=== PATIENT | male | born 1965 | race Caucasian/White ===

== ENCOUNTER 2017-08-17 12:59 | Emergency (ER) | payer MEDICARE, OTHER ==
[~2017-08-17] VITALS: Ht 188 cm; Wt 102.1 kg
[2017-08-17] MEDS ORDERED: GLIPIZIDE 5 MG (13:27)
[2017-08-17] MEDS ORDERED: ROSUVASTATIN CALCIUM 10 MG TAB (13:27)
[2017-08-17] MEDS ORDERED: TRAMADOL 50MG TABLETS (13:27)
[2017-08-17] MEDS ORDERED: METFORMIN HCL 1000 MG (13:27)
[2017-08-17] MEDS ORDERED: LISINOPRIL 10 MG TABS (13:27)
--- NOTE | 2017-08-17 13:49 | NUR ---
PT WAS EVALUATED BY DR ALMANZAR. PT WAS D/C TO HOME. D/C INSTRUCTIONS GIVEN TO THE PT.
[2017-08-17 13:51] VITALS: BP 141/79
== END 2017-08-17 13:52 | disposition home or self-care (01) ==
LOC: ER 12:59
DX: Z76.0 Encounter for issue of repeat prescription (principal); G89.29 Other chronic pain; F17.200 Nicotine dependence, unspecified, uncomplicated; E11.9 Type 2 diabetes mellitus without complications
CPT/HCPCS: 99283; A4663

== ENCOUNTER 2017-09-09 10:50 | Emergency (ER) | payer MEDICARE, OTHER ==
[~2017-09-09] VITALS: Ht 188 cm; Wt 99.8 kg
[~2017-09-09 10:50] MED LIST: GLIPIZIDE 5 MG; LISINOPRIL 10 MG TABS; METFORMIN HCL 1000 MG; ROSUVASTATIN CALCIUM 10 MG TAB; TRAMADOL 50MG TABLETS
--- NOTE | 2017-09-09 11:36 | NUR ---
PT WAS EVALUATED BY DR ROBLERO. PT ELOPED AFTER DR ROBLERO TALKED TO HIM. DR ROBLERO NOTIFIED.
== END 2017-09-09 11:38 | disposition left against medical advice (07) ==
LOC: ER 10:50
DX: G89.29 Other chronic pain (principal); E11.9 Type 2 diabetes mellitus without complications; F17.200 Nicotine dependence, unspecified, uncomplicated
CPT/HCPCS: A4663

== ENCOUNTER 2017-09-14 12:17 | Emergency (ER) | payer OTHER ==
[~2017-09-14] VITALS: Ht 188 cm; Wt 99.8 kg
[2017-09-14] MEDS ORDERED: ALPRAZOLAM 0.25 MG TABLET PO ONE (12:47)
[2017-09-14] MEDS ORDERED: IV NS 1000 ML 1,000 ML IV ONE (13:00)
[2017-09-14 13:05] LABS: BASOPHILS % (AUTO) 0.5 % (0.0-2.0); EOSINOPHILS # (AUTO) 0.1 K/uL (0.0-0.7); EOSINOPHILS % (AUTO) 0.5 % (0.0-7.0); HEMATOCRIT 45.9 % (36.7-47.1); HEMOGLOBIN 15.6 g/dL (12.5-16.3); LYMPHOCYTES # (AUTO) 1.7 K/uL (20.0-40.0); LYMPHOCYTES % (AUTO) 17.2 % (20.5-51.5); MEAN CORPUSCULAR HEMOGLOBIN 30.5 uug (23.8-33.4); MEAN CORPUSCULAR HGB CONC 34 g/dL (32.5-36.3); MEAN CORPUSCULAR VOLUME 89.6 fL (73.0-96.2); MONOCYTES # (AUTO) 0.6 K/uL (2.0-10.0); MONOCYTES % (AUTO) 5.5 % (0.0-11.0); NEUTROPHILS # (AUTO) 7.7 K/uL (1.8-8.9); NEUTROPHILS % (AUTO) 76.3 % (38.5-71.5); PLATELET COUNT (AUTO) 275 K/uL (152-348); RED BLOOD CELL COUNT(AUTO) 5.13 MIL/uL (4.06-5.63); WHITE BLOOD COUNT (AUTO) 10.1 K/uL (3.6-10.2)
--- NOTE | 2017-09-14 13:05 | NUR ---
PT IS IN BED #2B. DR SANTOS EVALUATED THE PT.
[2017-09-14] MEDS ORDERED: HYDROCODONE/APAP 7.5-325MG TABLET PO PRN (13:15)
[2017-09-14 13:17] LABS: CREATININE 1.1 mg/dL (0.6-1.3); POTASSIUM 3.7 mmol/L (3.5-5.1)
[2017-09-14] MEDS ORDERED: ALPRAZOLAM 0.5 MG TABLET ONE (13:17)
[2017-09-14 13:23] LABS: BILIRUBIN,TOTAL 0.2 mg/dL (0.2-1.0); TOTAL PROTEIN, SERUM 7.6 g/dL (6.4-8.2)
[2017-09-14] MEDS ORDERED: HYDROMORPHONE 1 MG/1 ML DISP.SYRIN IV ONE (14:30)
[2017-09-14] MEDS ORDERED: HYDROCODONE/APAP 7.5-325MG TABLET ONE (14:35)
--- NOTE | 2017-09-14 14:51 | NUR ---
IV removed. Catheter intact and site benign. Pressure and 4x4 gauze applied to site. No bleeding noted.
[2017-09-14 14:52] VITALS: BP 148/94
[2017-09-14] MEDS ORDERED: HYDROMORPHONE 2 MG/1 ML DISP.SYRIN ONE (14:53)
--- NOTE | 2017-09-14 14:53 | NUR ---
Patient discharged to home in stable conditon. Written and verbal after care instructions given. Patient verbalizes understanding of instructions. Stressed follow up with pmd.
== END 2017-09-14 14:57 | disposition home or self-care (01) ==
LOC: ER 12:17
DX: F11.23 Opioid dependence with withdrawal (principal); E11.9 Type 2 diabetes mellitus without complications; F17.200 Nicotine dependence, unspecified, uncomplicated
CPT/HCPCS: 70030-TC; 85025; 93005; A4663; J1170; J7030

== ENCOUNTER 2017-10-30 14:45 | Emergency (ER) | payer OTHER ==
[~2017-10-30] VITALS: Ht 188 cm; Wt 99.8 kg
[2017-10-30] MEDS: HYDROMORPHONE 1 MG/1 ML DISP.SYRIN IM ONE (15:59)
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
--- NOTE | 2017-10-30 16:00 | NUR ---
Patient discharged to home in stable conditon. Written and verbal after care instructions given. Patient verbalizes understanding of instructions. DILAUDID PRECAUTIONS GIVEN.
[2017-10-30] MEDS ORDERED: HYDROMORPHONE 2 MG/1 ML DISP.SYRIN ONE (16:11)
== END 2017-10-30 16:02 | disposition home or self-care (01) ==
LOC: ER 14:46
DX: Z76.0 Encounter for issue of repeat prescription (principal); G89.29 Other chronic pain; E11.9 Type 2 diabetes mellitus without complications; F17.200 Nicotine dependence, unspecified, uncomplicated; Z79.84 Long term (current) use of oral hypoglycemic drugs
CPT/HCPCS: A4663; J1170

== ENCOUNTER 2017-11-02 16:25 | Emergency (ER) | payer OTHER ==
[~2017-11-02] VITALS: Ht 188 cm; Wt 99.8 kg
== END 2017-11-02 17:00 | disposition home or self-care (01) ==
LOC: ER 16:27
DX: G89.29 Other chronic pain (principal); Z76.0 Encounter for issue of repeat prescription; E11.9 Type 2 diabetes mellitus without complications; Z79.84 Long term (current) use of oral hypoglycemic drugs; F17.200 Nicotine dependence, unspecified, uncomplicated
CPT/HCPCS: 99283; A4663

== ENCOUNTER 2017-12-13 19:01 | Emergency (ER) | payer OTHER ==
[~2017-12-13] VITALS: Ht 188 cm; Wt 99.8 kg
--- NOTE | 2017-12-13 19:27 | NUR ---
PT IN BED. PT ARRIVED AT ED WITH HOPES OF GETTING A TRAMADOL PRESCRIPTION. PT STATES THAT HE ROUTINELY TAKES THIS MED TO HELP WITH CHRONIC LT SHOULDER PAIN. PT STATES THAT HE RAN OUT OF MEDS BEFORE HE COULD SEE HIS PRIMARY MD.
--- NOTE | 2017-12-13 19:53 | NUR ---
Patient discharged to home in stable conditon. Written and verbal after care instructions given. Patient verbalizes understanding of instructions. Patient able to ambulate unassisted with a steady gait. Patient left with all personal belongings.
[2017-12-13 19:58] VITALS: BP 148/88
== END 2017-12-13 19:53 | disposition home or self-care (01) ==
LOC: ER 19:01
DX: G89.29 Other chronic pain (principal); M25.512 Pain in left shoulder; M25.531 Pain in right wrist; M25.562 Pain in left knee; E11.9 Type 2 diabetes mellitus without complications; F17.210 Nicotine dependence, cigarettes, uncomplicated; Z79.84 Long term (current) use of oral hypoglycemic drugs; Z79.891 Long term (current) use of opiate analgesic; Z79.899 Other long term (current) drug therapy
CPT/HCPCS: A4663

== ENCOUNTER 2018-02-07 18:43 | Emergency (ER) | payer OTHER ==
[~2018-02-07] VITALS: Ht 188 cm; Wt 95.3 kg
--- NOTE | 2018-02-07 19:07 | NUR ---
REPORT GIVE TO MERLE SOLORZANO.
--- NOTE | 2018-02-07 19:12 | NUR ---
REPORT TAKEN FROM ALEJANDRO. ASSUMING PT CARE AT THIS TIME.
[2018-02-07] MEDS ORDERED: TRAMADOL HCL 50 MG TABLET PO ONE (20:15)
[2018-02-07] MEDS ORDERED: TRAMADOL HCL 50 MG TABLET ONE (20:28)
--- NOTE | 2018-02-07 20:32 | NUR ---
Patient discharged to home in stable conditon. Written and verbal after care instructions given. Patient verbalizes understanding of instructions. Patient reported reduced pain prior to discharge. Patient able to ambulate unassisted with steady gait. Patient left with all personal belongings.
[2018-02-07 20:34] VITALS: BP 152/96
== END 2018-02-07 20:30 | disposition home or self-care (01) ==
LOC: ER 18:45
DX: G89.29 Other chronic pain (principal); F17.200 Nicotine dependence, unspecified, uncomplicated; Z76.0 Encounter for issue of repeat prescription
CPT/HCPCS: A4663

== ENCOUNTER 2018-02-09 12:06 | Emergency (ER) | payer OTHER ==
[~2018-02-09] VITALS: Ht 188 cm; Wt 95.3 kg
--- NOTE | 2018-02-09 13:44 | NUR ---
Patient discharged to home in stable conditon. Written and verbal after care instructions given. Patient verbalizes understanding of instructions.
[2018-02-09] MEDS ORDERED: TRAMADOL HCL 50 MG TABLET PO ONE (13:45)
[2018-02-09] MEDS ORDERED: TRAMADOL HCL 50 MG TABLET ONE (13:46)
== END 2018-02-09 13:45 | disposition home or self-care (01) ==
LOC: ER 12:06
DX: G89.29 Other chronic pain (principal); M54.9 Dorsalgia, unspecified; F17.200 Nicotine dependence, unspecified, uncomplicated; E11.9 Type 2 diabetes mellitus without complications; Z79.84 Long term (current) use of oral hypoglycemic drugs
CPT/HCPCS: A4663

== ENCOUNTER 2018-02-11 00:59 | Emergency (ER) | payer OTHER ==
--- NOTE | 2018-02-11 01:25 | NUR ---
PATIENT LEFT WITHOUT BEING TRIAGED OR SEEN BY ERMD
== END 2018-02-11 01:27 | disposition left against medical advice (07) ==
LOC: ER 00:59
DX: Z53.21 Procedure and treatment not carried out due to patient leaving prior to being seen by health care provider (principal)

== ENCOUNTER 2018-02-11 08:22 | Emergency (ER) | payer OTHER ==
[~2018-02-11] VITALS: Ht 188 cm; Wt 95.3 kg
[2018-02-11] MEDS ORDERED: ONDANSETRON ODT 4 MG TAB.RAPDIS SL ONE (08:37)
[2018-02-11] MEDS ORDERED: MORPHINE SULFATE 4 MG/1 ML DISP.SYRIN ONE (08:42)
[2018-02-11] MEDS ORDERED: ONDANSETRON ODT 4 MG TAB.RAPDIS ONE (08:42)
[2018-02-11] MEDS ORDERED: MORPHINE SULFATE 4 MG/1 ML DISP.SYRIN IM ONE (08:45)
--- NOTE | 2018-02-11 09:05 | NUR ---
Patient discharged to home in stable conditon. Written and verbal after care instructions given. Patient verbalizes understanding of instructions.pt walks in steady gait
[2018-02-11 09:07] VITALS: BP 131/81
== END 2018-02-11 09:09 | disposition home or self-care (01) ==
LOC: ER 08:22
DX: G89.29 Other chronic pain (principal); M25.512 Pain in left shoulder; M25.562 Pain in left knee; M25.531 Pain in right wrist; E11.9 Type 2 diabetes mellitus without complications; Z79.84 Long term (current) use of oral hypoglycemic drugs; F17.200 Nicotine dependence, unspecified, uncomplicated
CPT/HCPCS: 96372; 99283; A4663; J2270; Q0162

== ENCOUNTER 2018-02-12 13:51 | Emergency (ER) | payer OTHER ==
[~2018-02-12] VITALS: Ht 188 cm; Wt 95.3 kg
--- NOTE | 2018-02-12 14:05 | NUR ---
MSE DONE BY DR GRANADOS IN ROOM 04B. PATIENT MULTIPLE VISIT TO ER FOR CHRONIC PAIN.
--- NOTE | 2018-02-12 14:23 | NUR ---
Patient discharged to home in stable conditon. Written and verbal after care instructions given. Patient verbalizes understanding of instructions.
[2018-02-12 14:27] VITALS: BP 126/71
== END 2018-02-12 14:28 | disposition home or self-care (01) ==
LOC: ER 13:52
DX: G89.29 Other chronic pain (principal); M54.5 Low back pain; E11.9 Type 2 diabetes mellitus without complications; Z79.84 Long term (current) use of oral hypoglycemic drugs; F17.200 Nicotine dependence, unspecified, uncomplicated
CPT/HCPCS: A4663

== ENCOUNTER 2018-02-12 19:13 | Emergency (ER) | payer OTHER ==
[~2018-02-12] VITALS: Ht 188 cm; Wt 95.3 kg
--- NOTE | 2018-02-12 21:30 | NUR ---
DR JOSHUA MENA MD AT BEDSIDE FOR MSE.
[2018-02-12] MEDS ORDERED: TRAMADOL HCL 50 MG TABLET ONE (21:44)
[2018-02-12] MEDS ORDERED: TRAMADOL HCL 50 MG TABLET PO ONE (21:45)
--- NOTE | 2018-02-12 21:46 | NUR ---
Patient discharged to home in stable conditon. Written and verbal after care instructions given. Patient verbalizes understanding of instructions. Pt ambulated from ER w/ steady gait. Pt took all personal belongings.
[2018-02-12 21:49] VITALS: BP 156/84
== END 2018-02-12 21:50 | disposition home or self-care (01) ==
LOC: ER 19:16
DX: G89.29 Other chronic pain (principal); Z76.0 Encounter for issue of repeat prescription; F17.200 Nicotine dependence, unspecified, uncomplicated; E11.9 Type 2 diabetes mellitus without complications; Z79.84 Long term (current) use of oral hypoglycemic drugs
CPT/HCPCS: A4663

== ENCOUNTER 2018-02-16 18:09 | Emergency (ER) | payer OTHER ==
[~2018-02-16] VITALS: Ht 188 cm; Wt 95.3 kg
--- NOTE | 2018-02-16 19:18 | NUR ---
RECEIVED REPORT FROM RASHAD TRACEY
--- NOTE | 2018-02-16 19:42 | NUR ---
VISUAL DESIGN LEAD AT BEDSIDE PERFORMING BLOOD DRAW
[2018-02-16] MEDS ORDERED: CARISOPRODOL 350 MG TABLET ONE ×2 (19:44→21:16)
[2018-02-16] MEDS ORDERED: CARISOPRODOL 350 MG TABLET PO ONE ×2 (19:45→21:15)
--- NOTE | 2018-02-16 19:55 | NUR ---
PT IN BED. PT IS A&OX4. PT HAS REGULAR/UNLABORED BREATH SOUNDS. PT IS CALM AND COOPERATIVE. PT IS QUIETLY WATCHING TV. NO SIGNS/SYMPTOMS OF DISTRESS WITNESSED OR EXPRESSED BY PT.
[2018-02-16 20:03] LABS: CREATININE 1.1 mg/dL (0.6-1.3); MAGNESIUM 1.9 mg/dL (1.8-2.4); POTASSIUM 3.7 mmol/L (3.5-5.1)
[2018-02-16 20:14] LABS: BASOPHILS # (AUTO) 0.1 K/uL (0.0-8.0); BASOPHILS % (AUTO) 0.7 % (0.0-2.0); EOSINOPHILS # (AUTO) 0.1 K/uL (0.0-0.7); EOSINOPHILS % (AUTO) 1.7 % (0.0-7.0); HEMOGLOBIN 14.6 g/dL (12.5-16.3); LYMPHOCYTES # (AUTO) 1.8 K/uL (20.0-40.0); LYMPHOCYTES % (AUTO) 23.3 % (20.5-51.5); MEAN CORPUSCULAR HEMOGLOBIN 30.6 uug (23.8-33.4); MEAN CORPUSCULAR HGB CONC 34 g/dL (32.5-36.3); MEAN CORPUSCULAR VOLUME 89.9 fL (73.0-96.2); MONOCYTES # (AUTO) 0.6 K/uL (2.0-10.0); MONOCYTES % (AUTO) 7.2 % (0.0-11.0); NEUTROPHILS # (AUTO) 5.2 K/uL (1.8-8.9); NEUTROPHILS % (AUTO) 67.1 % (38.5-71.5); PLATELET COUNT (AUTO) 237 K/uL (152-348); RED BLOOD CELL COUNT(AUTO) 4.78 MIL/uL (4.06-5.63); WHITE BLOOD COUNT (AUTO) 7.7 K/uL (3.6-10.2)
[2018-02-16] MEDS ORDERED: OXYCODONE/APAP 5-325 MG TABLET PO ONE (21:15)
[2018-02-16] MEDS ORDERED: OXYCODONE/APAP 5-325 MG TABLET ONE (21:16)
--- NOTE | 2018-02-16 21:18 | NUR ---
Patient discharged to home in stable conditon. Written and verbal after care instructions given. Patient verbalizes understanding of instructions. Ambulated from ER with stable gait. Educated not to drive or operate heavy machinery due to recent narcotic intake. Patient states he will walk home and lives nearby. All belongings with patient.
[2018-02-16 21:19] VITALS: BP 131/80
== END 2018-02-16 21:20 | disposition home or self-care (01) ==
LOC: ER 18:12
DX: G89.29 Other chronic pain (principal); M62.838 Other muscle spasm; E11.9 Type 2 diabetes mellitus without complications; F17.210 Nicotine dependence, cigarettes, uncomplicated; Z79.84 Long term (current) use of oral hypoglycemic drugs; Z79.891 Long term (current) use of opiate analgesic; Z79.899 Other long term (current) drug therapy
CPT/HCPCS: 36415; 83735; 85025; A4663

== ENCOUNTER 2018-03-04 20:38 | Emergency (ER) | payer OTHER ==
[~2018-03-04] VITALS: Ht 185.4 cm; Wt 99.8 kg
--- NOTE | 2018-03-04 21:02 | NUR ---
DR JENELLE MENA MD AT BEDSIDE FOR MSE.
[2018-03-04] MEDS ORDERED: HYDROMORPHONE 2 MG/1 ML DISP.SYRIN ONE (21:11)
[2018-03-04] MEDS ORDERED: ONDANSETRON 4 MG/2 ML VIAL ONE (21:11)
[2018-03-04] MEDS: ONDANSETRON 4 MG/2 ML VIAL IM ONE (21:16)
[2018-03-04] MEDS: HYDROMORPHONE 1 MG/1 ML DISP.SYRIN IM ONE (21:16)
--- NOTE | 2018-03-04 21:18 | NUR ---
Patient discharged to home in stable conditon. Written and verbal after care instructions given. Patient verbalizes understanding of instructions. Pt ambulated from ER w/ steady gait. No acute distress noted. Pt took all personal belongings.
[2018-03-04 21:21] VITALS: BP 137/72
== END 2018-03-04 21:42 | disposition home or self-care (01) ==
LOC: ER 20:40
DX: M79.675 Pain in left toe(s) (principal); E11.9 Type 2 diabetes mellitus without complications; F17.200 Nicotine dependence, unspecified, uncomplicated; Z79.899 Other long term (current) drug therapy
CPT/HCPCS: A4663; J1170; J2405

== ENCOUNTER 2018-03-07 23:23 | Emergency (ER) | payer OTHER ==
[~2018-03-07] VITALS: Ht 185.4 cm; Wt 93.0 kg
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
[2018-03-07] MEDS ORDERED: HYDROCODONE/APAP 10-325 MG TABLET PO ONE (23:58)
[2018-03-08] MEDS ORDERED: HYDROCODONE/APAP 10-325 MG TABLET ONE (00:16)
--- NOTE | 2018-03-08 01:20 | NUR ---
PATIENT IN ROOM WITH NO DISTRESS NOTED
[2018-03-08] MEDS ORDERED: MORPHINE SULFATE 4 MG/1 ML DISP.SYRIN ONE (01:39)
[2018-03-08] MEDS ORDERED: MORPHINE SULFATE 2 MG/1 ML DISP.SYRIN IM ONE (01:45)
--- NOTE | 2018-03-08 01:51 | NUR ---
Patient discharged to home in stable conditon. Written and verbal after care instructions given. Patient verbalizes understanding of instructions. WALKED OUT OF ER NO DISTRESS NOTED
[2018-03-08 01:52] VITALS: BP 145/85
== END 2018-03-08 01:55 | disposition home or self-care (01) ==
LOC: ER 23:25
DX: S40.011A Contusion of right shoulder, initial encounter (principal); E11.9 Type 2 diabetes mellitus without complications; F17.210 Nicotine dependence, cigarettes, uncomplicated; Z79.84 Long term (current) use of oral hypoglycemic drugs; Z79.891 Long term (current) use of opiate analgesic; Z79.899 Other long term (current) drug therapy; X58.XXXA Exposure to other specified factors, initial encounter; Y93.89 Activity, other specified; Y92.89 Other specified places as the place of occurrence of the external cause; Y99.8 Other external cause status
CPT/HCPCS: 71045; 73020; 73060; 96372; 99284; A4663; J2270

== ENCOUNTER 2018-03-08 17:16 | Emergency (ER) | payer OTHER ==
[~2018-03-08] VITALS: Ht 185.4 cm; Wt 93.0 kg
--- NOTE | 2018-03-08 18:36 | NUR ---
Patient is resting comfortably in bed with eyes closed. Patient not in any distress noted.
--- NOTE | 2018-03-08 19:24 | NUR ---
REPORT TAKEN FROM KEN ALLEN. ASSUMING PT CARE AT THIS TIME. PT RESTING IN BED W/ EYES CLOSED. NO DISTRESS NOTED.
[2018-03-08] MEDS ORDERED: HYDROCODONE/APAP 5-325MG TABLET PO ONE (19:30)
[2018-03-08] MEDS ORDERED: HYDROCODONE/APAP 5-325MG TABLET ONE (19:36)
--- NOTE | 2018-03-08 19:37 | NUR ---
Patient discharged to home in stable conditon. Written and verbal after care instructions given. Patient verbalizes understanding of instructions. Pt ambualated from ER w/ steady gait. Pt took all personal belongings. No distress noted.
[2018-03-08 19:40] VITALS: BP 144/84
== END 2018-03-08 19:41 | disposition home or self-care (01) ==
LOC: ER 17:20
DX: M25.511 Pain in right shoulder (principal); M25.551 Pain in right hip; F17.210 Nicotine dependence, cigarettes, uncomplicated; E11.9 Type 2 diabetes mellitus without complications; Z79.84 Long term (current) use of oral hypoglycemic drugs; Z79.891 Long term (current) use of opiate analgesic; Z79.899 Other long term (current) drug therapy
CPT/HCPCS: 72170; 99283; A4663

== ENCOUNTER 2018-03-09 15:33 | Emergency (ER) | payer OTHER ==
[~2018-03-09] VITALS: Ht 188 cm; Wt 95.3 kg
--- NOTE | 2018-03-09 15:57 | NUR ---
at the bedside for MSE.
[2018-03-09] MEDS ORDERED: HYDROMORPHONE 1 MG/1 ML DISP.SYRIN IM ONE (16:00)
[2018-03-09] MEDS ORDERED: ONDANSETRON 4 MG/2 ML VIAL IM ONE (16:00)
[2018-03-09] MEDS ORDERED: ONDANSETRON 4 MG/2 ML VIAL ONE (16:03)
[2018-03-09] MEDS ORDERED: HYDROMORPHONE 2 MG/1 ML DISP.SYRIN ONE (16:03)
--- NOTE | 2018-03-09 16:05 | NUR ---
Patient discharged to home in stable conditon. Written and verbal after care instructions given. Patient verbalizes understanding of instructions. Pt left ER w/ steady gait.
[2018-03-09 16:07] VITALS: BP 133/71
== END 2018-03-09 16:10 | disposition home or self-care (01) ==
LOC: ER 15:35
DX: G89.29 Other chronic pain (principal); M25.511 Pain in right shoulder; I10 Essential (primary) hypertension; E11.9 Type 2 diabetes mellitus without complications; F17.210 Nicotine dependence, cigarettes, uncomplicated; Z79.84 Long term (current) use of oral hypoglycemic drugs; Z79.891 Long term (current) use of opiate analgesic; Z79.899 Other long term (current) drug therapy
CPT/HCPCS: 96372 ×2; 99284; A4663; J1170; J2405

== ENCOUNTER 2018-03-16 20:47 | Emergency (ER) | payer OTHER ==
[~2018-03-16] VITALS: Ht 188 cm; Wt 95.3 kg
--- NOTE | 2018-03-16 21:01 | NUR ---
DR. ALMANZAR AT BEDSIDE FOR MSE.
--- NOTE | 2018-03-16 21:15 | NUR ---
Patient discharged to home in stable conditon. Written and verbal after care instructions given. Patient verbalizes understanding of instructions.
[2018-03-16 21:21] VITALS: BP 147/91
== END 2018-03-16 21:25 | disposition home or self-care (01) ==
LOC: ER 20:50
DX: M25.511 Pain in right shoulder (principal); B35.3 Tinea pedis; I10 Essential (primary) hypertension; G89.29 Other chronic pain; E11.9 Type 2 diabetes mellitus without complications; F17.210 Nicotine dependence, cigarettes, uncomplicated; Z79.899 Other long term (current) drug therapy; Z79.84 Long term (current) use of oral hypoglycemic drugs
CPT/HCPCS: 29105; 99283; A4663

== ENCOUNTER 2018-03-16 23:55 | Emergency (ER) | payer OTHER ==
[~2018-03-16] VITALS: Ht 188 cm; Wt 95.3 kg
--- NOTE | 2018-03-17 00:29 | NUR ---
WENT TO BRING PT IN GONE FROM [facility]
--- NOTE | 2018-03-17 00:41 | NUR ---
DR JENELLE MENA MD AT BEDSIDE FOR MSE.
[2018-03-17] MEDS ORDERED: ONDANSETRON 4 MG/2 ML VIAL ONE (00:59)
[2018-03-17] MEDS ORDERED: HYDROMORPHONE 2 MG/1 ML DISP.SYRIN ONE (00:59)
[2018-03-17] MEDS ORDERED: HYDROMORPHONE 1 MG/1 ML DISP.SYRIN IM ONE (01:00)
[2018-03-17] MEDS ORDERED: ONDANSETRON 4 MG/2 ML VIAL IM ONE (01:00)
--- NOTE | 2018-03-17 01:10 | NUR ---
Patient discharged to home in stable conditon. Written and verbal after care instructions given. Patient verbalizes understanding of instructions. Pt took all personal belongings. No distress noted.
[2018-03-17 01:14] VITALS: BP 148/86
== END 2018-03-17 01:15 | disposition home or self-care (01) ==
LOC: ER 23:59
DX: G89.29 Other chronic pain (principal); M25.511 Pain in right shoulder; M25.572 Pain in left ankle and joints of left foot; B35.3 Tinea pedis; I10 Essential (primary) hypertension; F17.210 Nicotine dependence, cigarettes, uncomplicated; Z79.891 Long term (current) use of opiate analgesic; Z79.84 Long term (current) use of oral hypoglycemic drugs; Z79.899 Other long term (current) drug therapy
CPT/HCPCS: 96372; 99283; A4663; J1170; J2405

== ENCOUNTER 2018-03-18 09:35 | Emergency (ER) | payer OTHER ==
[~2018-03-18] VITALS: Ht 188 cm; Wt 95.3 kg
--- NOTE | 2018-03-18 09:54 | NUR ---
Patient is AOX4. Patient wants pain medicines but refused non-narcotic pain medicines which our ER doctor offered. Patient discharged to home in stable conditon. Written and verbal after care instructions given but patient refuses to sign the discharge papers. Patient verbalizes understanding of instructions. Patient left ER with steady gait. Security was called for assistance to escort this patient out of our ER department.
== END 2018-03-18 10:01 | disposition home or self-care (01) ==
LOC: ER 09:35
DX: G89.29 Other chronic pain (principal); M79.604 Pain in right leg; M25.511 Pain in right shoulder; I10 Essential (primary) hypertension; E11.9 Type 2 diabetes mellitus without complications; F17.210 Nicotine dependence, cigarettes, uncomplicated; Z79.84 Long term (current) use of oral hypoglycemic drugs; Z79.899 Other long term (current) drug therapy
CPT/HCPCS: 99281; A4663

== ENCOUNTER 2018-03-19 01:19 | Emergency (ER) | payer OTHER ==
[~2018-03-19] VITALS: Ht 182.9 cm; Wt 90.7 kg
[2018-03-19] MEDS ORDERED: HYDROCODONE/APAP 10-325 MG TABLET PO ONE (03:15)
[2018-03-19] MEDS ORDERED: HYDROCODONE/APAP 10-325 MG TABLET ONE (03:27)
[2018-03-19 03:29] VITALS: BP 136/74
== END 2018-03-19 03:30 | disposition home or self-care (01) ==
LOC: ER 01:22
DX: L97.529 Non-pressure chronic ulcer of other part of left foot with unspecified severity (principal); I10 Essential (primary) hypertension; E11.9 Type 2 diabetes mellitus without complications; F17.210 Nicotine dependence, cigarettes, uncomplicated; Z79.891 Long term (current) use of opiate analgesic; Z79.84 Long term (current) use of oral hypoglycemic drugs; Z79.899 Other long term (current) drug therapy
CPT/HCPCS: 73630; A4663

== ENCOUNTER 2018-03-26 21:59 | Emergency (ER) | payer OTHER ==
[~2018-03-26] VITALS: Ht 185.4 cm; Wt 90.7 kg
--- NOTE | 2018-03-26 22:23 | NUR ---
PT COMES TO ER WITH C/O CHRONIC FOOT PAIN AND IS HERE REQUESTING FOR MORE PAIN MEDICATION
[2018-03-26] MEDS ORDERED: TRAMADOL HCL 50 MG TABLET ONE (22:45)
[2018-03-26] MEDS ORDERED: TRAMADOL HCL 50 MG TABLET PO ONE (22:45)
--- NOTE | 2018-03-26 22:53 | NUR ---
Patient discharged to home in stable conditon. Written and verbal after care instructions given. Patient verbalizes understanding of instructions. Pt ambulated out of ER in steady gait. All belongings with pt. VSS. No acute distress noted.
[2018-03-26 22:54] VITALS: BP 144/84
== END 2018-03-26 23:05 | disposition home or self-care (01) ==
LOC: ER 22:02
DX: L97.529 Non-pressure chronic ulcer of other part of left foot with unspecified severity (principal); I10 Essential (primary) hypertension; E11.9 Type 2 diabetes mellitus without complications; E78.5 Hyperlipidemia, unspecified; F17.200 Nicotine dependence, unspecified, uncomplicated; Z79.84 Long term (current) use of oral hypoglycemic drugs; Z79.891 Long term (current) use of opiate analgesic; Z79.899 Other long term (current) drug therapy
CPT/HCPCS: 99282; A4663

== ENCOUNTER 2018-05-02 07:37 | Emergency (ER) | payer OTHER ==
[~2018-05-02] VITALS: Ht 185.4 cm; Wt 86.2 kg
--- NOTE | 2018-05-02 07:52 | NUR ---
at bedside to examine patient.
--- NOTE | 2018-05-02 08:05 | NUR ---
Pt. down to radiology.
--- NOTE | 2018-05-02 08:20 | NUR ---
back from radiology
--- NOTE | 2018-05-02 08:23 | NUR ---
at bedside educating patient on dcd plan.
--- NOTE | 2018-05-02 08:28 | NUR ---
on line with [facility]. regarding pain management.
--- NOTE | 2018-05-02 08:30 | NUR ---
dcd instructions given to patient pt. also informed that contact [facility] and discuss the need for pain control and appointment to be seen by [facility] . Addendum: 05/02/18 at 0832 by TABITHA summary report faxed to by Primitivo from admitting.
--- NOTE | 2018-05-02 08:38 | NUR ---
patient provided with breakfast as requested.
--- NOTE | 2018-05-02 08:40 | NUR ---
Dr. Solorio spoke with client representative and since patient has no phone to be called at, he was instructed as requested by to call and schedule and appointment or walk to their urgent care facility.
--- NOTE | 2018-05-02 08:53 | NUR ---
pt. left room ambulatory after eating breakfast. vitals stable.
== END 2018-05-02 08:55 | disposition home or self-care (01) ==
LOC: ER 07:37
DX: J40 Bronchitis, not specified as acute or chronic (principal); G89.29 Other chronic pain; F17.200 Nicotine dependence, unspecified, uncomplicated; I10 Essential (primary) hypertension; E11.9 Type 2 diabetes mellitus without complications
CPT/HCPCS: 71046; 99284; 99406; A4663

== ENCOUNTER 2018-05-13 15:59 | Emergency (ER) | payer OTHER ==
[~2018-05-13] VITALS: Ht 185.4 cm; Wt 81.6 kg
--- NOTE | 2018-05-13 16:21 | NUR ---
PT IS IN ROOM #2B. DR MONIQUE EVALUATED THE PT.
--- NOTE | 2018-05-13 17:16 | NUR ---
PT WAS D/C TO HOME BY DR MONIQUE. D/C INSTRUCTIONS GIVEN TO THE PT BY DR MONIQUE.
[2018-05-13 17:17] VITALS: BP 142/84
== END 2018-05-13 17:20 | disposition home or self-care (01) ==
LOC: ER 16:00
DX: S02.2XXA Fracture of nasal bones, initial encounter for closed fracture (principal); S09.90XA Unspecified injury of head, initial encounter; R07.81 Pleurodynia; I10 Essential (primary) hypertension; F17.200 Nicotine dependence, unspecified, uncomplicated; E11.9 Type 2 diabetes mellitus without complications; Y04.0XXA Assault by unarmed brawl or fight, initial encounter; Y93.89 Activity, other specified; Y92.89 Other specified places as the place of occurrence of the external cause; Y99.8 Other external cause status
CPT/HCPCS: 71101; 93005; 99284; 99406; A4663

== ENCOUNTER 2018-11-15 08:48 | Emergency (ER) | payer OTHER ==
[~2018-11-15] VITALS: Ht 185.4 cm; Wt 81.6 kg
--- NOTE | 2018-11-15 08:56 | NUR ---
PT A/OX4, PRESENTS TO THE ER C/O TOOTH ACHE. VSS. PT DENIES C/P, SOB, N/V/D, DIZZINESS, HEADACHE. ER MD AT BEDSIDE FOR MSE.
[2018-11-15] MEDS ORDERED: ONDANSETRON 4 MG/2 ML VIAL IM ONE (09:00)
[2018-11-15] MEDS ORDERED: HYDROMORPHONE 1 MG/1 ML DISP.SYRIN IM ONE (09:00)
[2018-11-15] MEDS ORDERED: HYDROMORPHONE 1 MG/1 ML DISP.SYRIN ONE (09:03)
[2018-11-15] MEDS ORDERED: ONDANSETRON 4 MG/2 ML VIAL ONE (09:03)
--- NOTE | 2018-11-15 09:10 | NUR ---
Patient discharged to home in stable conditon. Written and verbal after care instructions given. Patient verbalizes understanding of instructions. PT D/C W/ PRESCRIPTION. ALL BELONGINGS W/ PT. PT SELF-AMBULATED W/O DIFFICULTY.
[2018-11-15 09:12] VITALS: BP 136/70
--- NOTE | 2018-11-15 09:12 | NUR ---
PT STATES HE WILL BE TAKE PUBLIC TRANSPORTATION HOME.
== END 2018-11-15 09:15 | disposition home or self-care (01) ==
LOC: ER 08:48
DX: K08.89 Other specified disorders of teeth and supporting structures (principal); I10 Essential (primary) hypertension; E11.9 Type 2 diabetes mellitus without complications; F17.200 Nicotine dependence, unspecified, uncomplicated; Z79.899 Other long term (current) drug therapy
CPT/HCPCS: 96372 ×2; 99283; J1170; J2405; A4663

== ENCOUNTER 2018-11-30 11:34 | Emergency (ER) | payer OTHER ==
[~2018-11-30] VITALS: Ht 185.4 cm; Wt 81.6 kg
--- NOTE | 2018-11-30 12:49 | NUR ---
Dr Wright at the bedside for MSE.
--- NOTE | 2018-11-30 13:04 | NUR ---
Patient discharged to home in stable conditon. Written and verbal after care instructions given. Patient verbalizes understanding of instructions.
[2018-11-30 13:07] VITALS: BP 157/92
== END 2018-11-30 13:08 | disposition home or self-care (01) ==
LOC: ER 11:36
DX: K08.89 Other specified disorders of teeth and supporting structures (principal); I10 Essential (primary) hypertension; E11.9 Type 2 diabetes mellitus without complications; F17.200 Nicotine dependence, unspecified, uncomplicated; Z79.891 Long term (current) use of opiate analgesic; Z79.899 Other long term (current) drug therapy
CPT/HCPCS: A4663

== ENCOUNTER 2019-05-31 15:11 | Emergency (ER) | payer OTHER ==
[~2019-05-31] VITALS: Ht 185.4 cm; Wt 81.6 kg
--- NOTE | 2019-05-31 15:25 | NUR ---
Physician at bedside.
[2019-05-31] MEDS ORDERED: HYDROCODONE/APAP 10-325 MG TABLET PO ONE (15:30)
[2019-05-31] MEDS ORDERED: HYDROCODONE/APAP 10-325 MG TABLET ONE (15:35)
--- NOTE | 2019-05-31 16:01 | NUR ---
Patient discharged to home in stable conditon. Written and verbal after care instructions given. Patient verbalizes understanding of instructions.pt walks in steady gait.
[2019-05-31 16:08] VITALS: BP 148/88
== END 2019-05-31 16:11 | disposition home or self-care (01) ==
LOC: ER 15:17
DX: S90.31XA Contusion of right foot, initial encounter (principal); I10 Essential (primary) hypertension; E11.9 Type 2 diabetes mellitus without complications; F17.200 Nicotine dependence, unspecified, uncomplicated; Z79.899 Other long term (current) drug therapy; W22.8XXA Striking against or struck by other objects, initial encounter; Y93.89 Activity, other specified; Y92.89 Other specified places as the place of occurrence of the external cause; Y99.8 Other external cause status
CPT/HCPCS: 73630; A4663

== ENCOUNTER 2019-05-31 17:59 | Emergency (ER) | payer OTHER ==
[~2019-05-31] VITALS: Ht 185.4 cm; Wt 81.6 kg
--- NOTE | 2019-05-31 18:42 | NUR ---
Physician at bedside.
[2019-05-31] MEDS ORDERED: IPRATROPIUM BROMIDE 0.5 MG/2.5 ML NEBU ONE (18:55)
[2019-05-31] MEDS ORDERED: ALBUTEROL SULFATE 2.5 MG/3 ML NEBU ONE (18:55)
[2019-05-31] MEDS ORDERED: IPRATROPIUM BROMIDE 0.5 MG/2.5 ML NEBU NEB ONE (19:00)
[2019-05-31] MEDS ORDERED: ALBUTEROL SULFATE 2.5 MG/3 ML NEBU NEB ONE (19:00)
--- NOTE | 2019-05-31 19:01 | NUR ---
Report given to oncoming shift. Patient receiving breathing treatment at this time.
[2019-05-31 19:04] LABS: BASOPHILS % (AUTO) 0.5 % (0.0-2.0); EOSINOPHILS # (AUTO) 0.1 K/uL (0.0-0.7); EOSINOPHILS % (AUTO) 1.1 % (0.0-7.0); HEMATOCRIT 40.4 % (36.7-47.1); HEMOGLOBIN 13.7 g/dL (12.5-16.3); LYMPHOCYTES % (AUTO) 16.3 % (20.5-51.5); MEAN CORPUSCULAR HEMOGLOBIN 30.3 uug (23.8-33.4); MEAN CORPUSCULAR HGB CONC 34 g/dL (32.5-36.3); MEAN CORPUSCULAR VOLUME 89.5 fL (73.0-96.2); MONOCYTES # (AUTO) 0.4 K/uL (2.0-10.0); NEUTROPHILS # (AUTO) 4.6 K/uL (1.8-8.9); NEUTROPHILS % (AUTO) 76.1 % (38.5-71.5); PLATELET COUNT (AUTO) 211 K/uL (152-348); RED BLOOD CELL COUNT(AUTO) 4.51 MIL/uL (4.06-5.63); WHITE BLOOD COUNT (AUTO) 6.1 K/uL (3.6-10.2)
[2019-05-31 19:12] LABS: CREATININE 0.9 mg/dL (0.6-1.3); POTASSIUM 3.8 mmol/L (3.5-5.1)
[2019-05-31 19:25] LABS: BILIRUBIN,DIRECT 0.1 mg/dL (0.0-0.2); BILIRUBIN,TOTAL 0.3 mg/dL (0.2-1.0); TOTAL PROTEIN, SERUM 7.3 g/dL (6.4-8.2)
--- NOTE | 2019-05-31 20:10 | NUR ---
Paged Addy GOMEZP. Pending call back for MD to MD call.
[2019-05-31] MEDS ORDERED: ASPIRIN 81 MG TAB.CHEW PO ONE (20:30)
[2019-05-31] MEDS ORDERED: ASPIRIN 81 MG TAB.CHEW ONE (20:36)
--- NOTE | 2019-05-31 20:52 | NUR ---
Received transfer info from [facility]. Patient to be transferred to [facility]. Accepting MD: Dr. Carlson Phone# for report is [phone] [facility] Transport ETA @ [id number]
--- NOTE | 2019-05-31 21:07 | NUR ---
Report given to Wayne charge nurse @ [facility].
--- NOTE | 2019-05-31 21:36 | NUR ---
[facility] [address] here to transport pt to [facility]. Pt stable for transfer. Transfer acknowledgment signed. Vital signs stable. Respirations even +unlabored. Pt appears in no apparent distress.
== END 2019-05-31 21:45 | disposition short-term general hospital (02) ==
LOC: ER 17:59
DX: R07.9 Chest pain, unspecified (principal); J44.1 Chronic obstructive pulmonary disease with (acute) exacerbation; R42 Dizziness and giddiness; I10 Essential (primary) hypertension; E11.9 Type 2 diabetes mellitus without complications; F17.200 Nicotine dependence, unspecified, uncomplicated; Z79.899 Other long term (current) drug therapy
CPT/HCPCS: 36415; 70030-TC; 71045; 85025; 93005; A4663; J3590

== ENCOUNTER 2021-08-02 07:22 | Emergency (ER) | payer OTHER ==
[~2021-08-02] VITALS: Ht 185.4 cm; Wt 90.7 kg
[2021-08-02] MEDS ORDERED: MORPHINE SULFATE 4 MG/1 ML DISP.SYRIN IM ONE (08:15)
[2021-08-02] MEDS ORDERED: KETOROLAC TROMETHAMINE 30 MG INJ IM ONE (08:15)
[2021-08-02] MEDS ORDERED: MORPHINE SULFATE 4 MG/1 ML DISP.SYRIN ONE (08:29)
--- NOTE | 2021-08-02 08:33 | NUR ---
Patient was seen by . Patient states he does not want the Toradol, Dr Sandoval notified. Morphine given as ordered.
--- NOTE | 2021-08-02 08:54 | NUR ---
Patient states pain has diminished significantly. He is awake and alert
--- NOTE | 2021-08-02 11:14 | NUR ---
PATIENT SPOKE TO DR SCHNEIDER. MORPHINE GIVEN ORDERED. PATIENT STATES HE WILL NOT DRIVE TODAY AND STATES HE IS KNOWLEDGABLE OF MORPHINE PRECAUTIONS
[2021-08-02] MEDS ORDERED: MORPHINE SULFATE 2 MG/1 ML DISP.SYRIN IM ONE (11:15)
--- NOTE | 2021-08-02 11:17 | NUR ---
DC AND FOLLOW UP INSTRUCTIONS GIVEN AND EXPLAINED TO PATIENT WHO STATES HE UNDERSTANDS ALL INSTRUCTIONS
[2021-08-02] MEDS ORDERED: MORPHINE SULFATE 2 MG/1 ML DISP.SYRIN ONE (11:18)
== END 2021-08-02 11:22 | disposition home or self-care (01) ==
LOC: ER 07:22
DX: M54.9 Dorsalgia, unspecified (principal); I10 Essential (primary) hypertension; E11.9 Type 2 diabetes mellitus without complications; F17.200 Nicotine dependence, unspecified, uncomplicated; Z79.84 Long term (current) use of oral hypoglycemic drugs
CPT/HCPCS: 82962; 96372 ×2; 99284; J2270 ×2; A4663

== ENCOUNTER 2021-08-18 14:36 | Emergency (ER) | payer OTHER ==
[~2021-08-18] VITALS: Ht 185.4 cm; Wt 80.7 kg
[2021-08-18] MEDS ORDERED: MORPHINE SULFATE 4 MG/1 ML DISP.SYRIN IM ONE (15:30)
[2021-08-18] MEDS ORDERED: ACETAMINOPHEN 325 MG TABLET PO ONE (15:30)
[2021-08-18] MEDS ORDERED: IBUPROFEN 400 MG TABLET PO ONE (15:30)
[2021-08-18] MEDS ORDERED: IBUPROFEN 400 MG TABLET ONE (15:37)
[2021-08-18] MEDS ORDERED: ACETAMINOPHEN 325 MG TABLET ONE (15:37)
[2021-08-18] MEDS ORDERED: MORPHINE SULFATE 2 MG/1 ML DISP.SYRIN ONE (15:38)
[2021-08-18] MEDS ORDERED: MORPHINE SULFATE 4 MG/1 ML DISP.SYRIN ONE (15:38)
--- NOTE | 2021-08-18 15:39 | NUR ---
Pt states PS 9/10, in NAD at this time. Given medication as ordered. Gave pt a sandwich and juice, per pt request. Will re-assess pain and medication affect. Pt denies driving today.
--- NOTE | 2021-08-18 15:57 | NUR ---
Pt denies any adverse event after medication administration. States P/S improvement, now 01/30. Patient discharged to home in stable condition. Written and verbal after care instructions given. Patient verbalizes understanding of instructions. Stressed follow up or return to ER for worsening s/s.
[2021-08-18 16:08] VITALS: BP 152/75
== END 2021-08-18 15:58 | disposition home or self-care (01) ==
LOC: ER 14:36
DX: M54.9 Dorsalgia, unspecified (principal); G89.28 Other chronic postprocedural pain; I10 Essential (primary) hypertension; E11.9 Type 2 diabetes mellitus without complications; F17.200 Nicotine dependence, unspecified, uncomplicated; Z79.84 Long term (current) use of oral hypoglycemic drugs
CPT/HCPCS: 96372; 99283; J2270 ×2; A4663

== ENCOUNTER 2021-08-23 22:27 | Emergency (ER) | payer OTHER ==
[~2021-08-23] VITALS: Ht 185.4 cm; Wt 90.7 kg
--- NOTE | 2021-08-24 03:40 | NUR ---
Bed available in the ER at this time. Place patient in room 4a.
--- NOTE | 2021-08-24 03:51 | NUR ---
PATIENT WALKED INTO ER C/O CHRONIC BACK PAIN THAT IS WORSE IN THE LAST 2 DAYS. PATIENT DENIES TRAUMA TO AREA.
--- NOTE | 2021-08-24 04:51 | NUR ---
Dr. Sandoval on bedside for MSE.
[2021-08-24] MEDS: MORPHINE SULFATE 4 MG/1 ML DISP.SYRIN IM ONE (05:14)
[2021-08-24] MEDS: KETOROLAC TROMETHAMINE 60 MG INJ IM ONE (05:14)
[2021-08-24] MEDS ORDERED: MORPHINE SULFATE 4 MG/1 ML DISP.SYRIN ONE (05:16)
[2021-08-24] MEDS ORDERED: KETOROLAC TROMETHAMINE 60 MG INJ IM ONE (05:17)
--- NOTE | 2021-08-24 05:21 | NUR ---
Pt requested for food and drink and given per Dr Sandoval's approval.
--- NOTE | 2021-08-24 06:47 | NUR ---
Dr. Murphy on bedside for MSE.
[2021-08-24] MEDS: FENTANYL CITRATE 100 MCG/2 ML AMPUL IV ONE (06:57)
[2021-08-24] MEDS: HYDROCODONE/APAP 5-325MG TABLET PO ONE (07:02)
--- NOTE | 2021-08-24 07:02 | NUR ---
Report given to day shift RASHAD Segura.
[2021-08-24] MEDS ORDERED: FENTANYL CITRATE 100 MCG/2 ML AMPUL ONE (07:05)
[2021-08-24] MEDS ORDERED: HYDROCODONE/APAP 5-325MG TABLET ONE (07:09)
--- NOTE | 2021-08-24 07:33 | NUR ---
Patient given written and verbal discharge instructions. Patient verbalizes understanding of instructions. Patient is ambulatory with steady gait. Patient given list of available shelters in surrounding area.pt walks in steady gait. pain down to toleralable [place]vel os 11/30.
[2021-08-24 07:34] VITALS: BP 121/71
== END 2021-08-24 07:44 | disposition home or self-care (01) ==
LOC: ER 22:28
DX: M54.89 Other dorsalgia (principal); F17.200 Nicotine dependence, unspecified, uncomplicated; Z59.02 Unsheltered homelessness; E11.9 Type 2 diabetes mellitus without complications; Z87.09 Personal history of other diseases of the respiratory system; Z79.84 Long term (current) use of oral hypoglycemic drugs
CPT/HCPCS: 96372 ×2; 99284; J1885; J2270; A4663; J3010

== ENCOUNTER 2021-09-02 23:35 | Emergency (ER) | payer OTHER ==
[~2021-09-02] VITALS: Ht 185.4 cm; Wt 90.7 kg
--- NOTE | 2021-09-02 23:55 | NUR ---
Dr. Brewer at bedside for MSE.
[2021-09-03] MEDS ORDERED: HYDROCODONE/APAP 5-325MG TABLET PO ONE
[2021-09-03] MEDS ORDERED: IBUP-1955 PO (00:02)
[2021-09-03] MEDS ORDERED: BACL10TA PO (00:02)
[2021-09-03] MEDS ORDERED: LIDO30AD10 TD (00:02)
[2021-09-03] MEDS ORDERED: HYDROCODONE/APAP 5-325MG TABLET ONE (00:12)
[2021-09-03] MEDS ORDERED: LIDOCAINE 5% PATCH TD ONE ×2 (00:12)
--- NOTE | 2021-09-03 00:19 | NUR ---
Patient discharged to home in stable condition. Written and verbal after care instructions given. Patient verbalizes understanding of instructions. Stressed follow up or return to ER for worsening s/s. Patient out of ER with steady gait, no acute signs of distress, VSS, all belongings taken.
[2021-09-03 00:20] VITALS: BP 155/94
[2021-09-03] MEDS ORDERED: DOXY-326 PO (13:00)
[2021-09-03] MEDS ORDERED: AMOX-430 PO (13:00)
[2021-09-03] MEDS ORDERED: PRED20TA PO (13:36)
[2021-09-03] MEDS ORDERED: ALBU8.5H8 INH (13:37)
== END 2021-09-03 00:22 | disposition home or self-care (01) ==
LOC: ER 23:44
DX: M54.9 Dorsalgia, unspecified (principal); G89.29 Other chronic pain; I10 Essential (primary) hypertension; E11.9 Type 2 diabetes mellitus without complications; F17.210 Nicotine dependence, cigarettes, uncomplicated; Z79.84 Long term (current) use of oral hypoglycemic drugs
CPT/HCPCS: A4663

== ENCOUNTER 2021-09-03 12:15 | Emergency (ER) | payer OTHER ==
[~2021-09-03] VITALS: Ht 185.4 cm; Wt 90.7 kg
[~2021-09-03 12:15] MED LIST changes: +BACL10TA PO; +IBUP-1955 PO; +LIDO30AD10 TD
[2021-09-03] MEDS ORDERED: IPRATROPIUM BROMIDE 0.5 MG/2.5 ML NEBU NEB ONE (12:30)
[2021-09-03] MEDS ORDERED: IV NORMAL SALINE 1000 ML BAG IV ONE (12:30)
[2021-09-03] MEDS ORDERED: ALBUTEROL SULFATE 2.5 MG/3 ML NEBU NEB ONE ×2 (12:30→13:30)
[2021-09-03] MEDS ORDERED: HYDROCODONE/APAP 5-325MG TABLET PO ONE (12:30)
[2021-09-03] MEDS ORDERED: predniSONE 20 MG TABLET PO ONE (12:30)
[2021-09-03] MEDS ORDERED: ALBUTEROL SULFATE 2.5 MG/3 ML NEBU ONE ×2 (12:40→13:25)
[2021-09-03] MEDS ORDERED: IPRATROPIUM BROMIDE 0.5 MG/2.5 ML NEBU ONE (12:40)
[2021-09-03] MEDS ORDERED: predniSONE 10 MG TABLET ONE (12:44)
[2021-09-03] MEDS ORDERED: HYDROCODONE/APAP 5-325MG TABLET ONE (12:44)
[2021-09-03] MEDS ORDERED: predniSONE 50 MG TABLET ONE (12:44)
[2021-09-03] MEDS ORDERED: KETOROLAC TROMETHAMINE 15 MG INJ IVP ONE (12:45)
[2021-09-03] MEDS ORDERED: KETOROLAC TROMETHAMINE 30 MG INJ ONE (13:00)
[2021-09-03] MEDS ORDERED: AMOX-430 PO (13:00)
[2021-09-03] MEDS ORDERED: DOXY-326 PO (13:00)
[2021-09-03 13:17] LABS: HEMATOCRIT 40.4 % (36.7-47.1); MEAN CORPUSCULAR HEMOGLOBIN 30.7 uug (23.8-33.4); MEAN CORPUSCULAR VOLUME 90.2 fL (73.0-96.2); PLATELET COUNT (AUTO) 317 K/uL (152-348)
[2021-09-03 13:19] LABS: CREATININE 1.1 mg/dL (0.6-1.3); POTASSIUM 4.6 mmol/L (3.5-5.1)
[2021-09-03 13:25] LABS: BILIRUBIN,TOTAL 0.3 mg/dL (0.2-1.0); TOTAL PROTEIN, SERUM 8.2 g/dL (6.4-8.2)
[2021-09-03] MEDS ORDERED: PRED20TA PO (13:36)
[2021-09-03] MEDS ORDERED: ALBU8.5H8 INH (13:37)
--- NOTE | 2021-09-03 13:44 | NUR ---
IV removed. Catheter intact and site benign. Pressure and 4x4 gauze applied to site. No bleeding noted.
[2021-09-03 13:48] VITALS: BP 131/87
--- NOTE | 2021-09-03 13:48 | NUR ---
Patient discharged to home in stable condition. Written and verbal after care instructions given. Patient verbalizes understanding of instructions. Stressed follow up or return to ER for worsening s/s.
== END 2021-09-03 13:49 | disposition home or self-care (01) ==
LOC: ER 12:18
DX: J44.1 Chronic obstructive pulmonary disease with (acute) exacerbation (principal); G89.29 Other chronic pain; M54.9 Dorsalgia, unspecified; E11.9 Type 2 diabetes mellitus without complications; Z79.84 Long term (current) use of oral hypoglycemic drugs; F17.200 Nicotine dependence, unspecified, uncomplicated; I10 Essential (primary) hypertension
CPT/HCPCS: 36415; 71046; 80053; 85025; 94640 ×2; 96361; 96374; 99284; J1885; J7512 ×2; A4663; J3590; J7030

== ENCOUNTER 2021-09-17 03:36 | Emergency (ER) | payer OTHER ==
[~2021-09-17 03:36] MED LIST changes: +ALBU8.5H8 INH; +AMOX-430 PO; +DOXY-326 PO; +PRED20TA PO
--- NOTE | 2021-09-17 03:58 | NUR ---
Pt not in waiting room.
== END 2021-09-17 03:59 | disposition left against medical advice (07) ==
LOC: ER 03:47
DX: Z53.21 Procedure and treatment not carried out due to patient leaving prior to being seen by health care provider (principal)

== ENCOUNTER 2021-09-18 07:28 | Emergency (ER) | payer OTHER ==
[~2021-09-18] VITALS: Ht 185.4 cm; Wt 90.7 kg
--- NOTE | 2021-09-18 07:36 | NUR ---
Dr Almendarez at the bedside for MSE.
[2021-09-18] MEDS ORDERED: ACETAMINOPHEN 325 MG TABLET PO ONE (07:45)
[2021-09-18] MEDS ORDERED: MORPHINE SULFATE 4 MG/1 ML DISP.SYRIN IM ONE (07:45)
[2021-09-18] MEDS ORDERED: ACETAMINOPHEN 325 MG TABLET ONE (08:01)
[2021-09-18] MEDS ORDERED: MORPHINE SULFATE 4 MG/1 ML DISP.SYRIN ONE (08:01)
[2021-09-18] MEDS ORDERED: MORPHINE SULFATE 2 MG/1 ML DISP.SYRIN ONE (08:02)
[2021-09-18 08:25] VITALS: BP 133/72
== END 2021-09-18 08:26 | disposition home or self-care (01) ==
LOC: ER 07:28
DX: M54.9 Dorsalgia, unspecified (principal); G89.29 Other chronic pain; I10 Essential (primary) hypertension; F17.200 Nicotine dependence, unspecified, uncomplicated; E11.9 Type 2 diabetes mellitus without complications; Z79.84 Long term (current) use of oral hypoglycemic drugs; Z79.899 Other long term (current) drug therapy
CPT/HCPCS: 96372; 99283; J2270 ×2; A4663

== ENCOUNTER → 2021-09-23 | Emergency (ER) | payer OTHER | END | disposition left against medical advice (07) | LOC: ER 09:20 | DX: Z53.21 Procedure and treatment not carried out due to patient leaving prior to being seen by health care provider (principal) ==

== ENCOUNTER 2021-10-26 11:09 | Emergency (ER) | payer OTHER ==
[~2021-10-26] VITALS: Ht 185.4 cm; Wt 80.7 kg
[2021-10-26] MEDS ORDERED: KETOROLAC TROMETHAMINE 15 MG INJ IM ONE (11:45)
[2021-10-26] MEDS ORDERED: LIDOCAINE 5% PATCH TD ONE ×2 (11:45→11:51)
[2021-10-26] MEDS ORDERED: KETOROLAC TROMETHAMINE 15 MG INJ ONE (11:51)
== END 2021-10-26 11:50 | disposition home or self-care (01) ==
LOC: ER 11:09
DX: M54.9 Dorsalgia, unspecified (principal); R73.03 Prediabetes; G89.4 Chronic pain syndrome; F17.200 Nicotine dependence, unspecified, uncomplicated
CPT/HCPCS: 96372; 99283; J1885; A4663

== ENCOUNTER 2021-11-03 00:40 | Emergency (ER) | payer OTHER ==
[~2021-11-03] VITALS: Ht 185.4 cm; Wt 81.6 kg
--- NOTE | 2021-11-03 02:21 | NUR ---
pt a/o ambulated to room 5a.
[2021-11-03] MEDS ORDERED: KETOROLAC TROMETHAMINE 60 MG INJ IM ONE ×2 (02:45→02:57)
--- NOTE | 2021-11-03 03:21 | NUR ---
radiology at bedside for exam.
[2021-11-03 03:40] LABS: CREATININE 0.9 mg/dL (0.6-1.3); POTASSIUM 3.8 mmol/L (3.5-5.1)
[2021-11-03 03:42] LABS: HEMATOCRIT 31.8 % (36.7-47.1); MEAN CORPUSCULAR HEMOGLOBIN 27.8 uug (23.8-33.4); PLATELET COUNT (AUTO) 519 K/uL (152-348)
[2021-11-03] MEDS ORDERED: HYDR-3980 PO (04:11)
[2021-11-03] MEDS ORDERED: SULF1TAB48 PO (04:11)
[2021-11-03] MEDS ORDERED: SULFAMETH/TRIMETH 800/160 MG TABLET PO ONE (04:15)
--- NOTE | 2021-11-03 04:22 | NUR ---
Patient discharged to home in stable condition. Written and verbal after care instructions given. Patient verbalizes understanding of instructions. Stressed follow up or return to ER for worsening s/s. pt ambulatory with steady gait, denies pain.
[2021-11-03 04:24] VITALS: BP 140/77
== END 2021-11-03 04:24 | disposition home or self-care (01) ==
LOC: ER 00:43
DX: E11.621 Type 2 diabetes mellitus with foot ulcer (principal); L97.529 Non-pressure chronic ulcer of other part of left foot with unspecified severity; Z79.84 Long term (current) use of oral hypoglycemic drugs; I10 Essential (primary) hypertension; F17.200 Nicotine dependence, unspecified, uncomplicated; G89.4 Chronic pain syndrome
CPT/HCPCS: 36415; 73630; 80048; 84550; 85025; 96372; 99284; J1885; A4663

== ENCOUNTER 2021-11-13 07:25 | Emergency (ER) | payer OTHER ==
[~2021-11-13] VITALS: Ht 185.4 cm; Wt 81.6 kg
[~2021-11-13 07:25] MED LIST changes: +HYDR-3980 PO; +SULF1TAB48 PO
--- NOTE | 2021-11-13 08:47 | NUR ---
Patient discharged to home in stable condition. verbal after care instructions given. Patient verbalizes understanding of instructions. Stressed follow up or return to ER for worsening s/s.pt walks in steady gait.
== END 2021-11-13 08:53 | disposition home or self-care (01) ==
LOC: ER 07:25
DX: G89.4 Chronic pain syndrome (principal); Z76.5 Malingerer [conscious simulation]; M54.9 Dorsalgia, unspecified; E11.9 Type 2 diabetes mellitus without complications; Z59.00 Homelessness unspecified; I10 Essential (primary) hypertension; J44.9 Chronic obstructive pulmonary disease, unspecified; F17.200 Nicotine dependence, unspecified, uncomplicated; Z79.899 Other long term (current) drug therapy
CPT/HCPCS: A4663